=== PATIENT | male | born 1940 | race Caucasian/White ===

== ENCOUNTER → 2023-03-10 10:32 | Outpatient (REF) | payer OTHER, SELFPAY ==
[2023-03-10 11:06] LABS: % Basophils 1.9 % (0-2); % Eosinophils 3.2 % (0-6); % Immature Granulocytes 0.4 % (0-0.5); % Lymphocytes 12.3 % (20.5-51.1); % Monocytes 10.3 % (1.7-9.3); % Neutrophils 71.9 % (42.2-75.2); Absolute Basophils 0.2 10^3/uL (0-0.2); Absolute Eosinophils 0.3 10^3/uL (0-0.7); Absolute Lymphocytes 1.1 10^3/uL (1.2-3.4); Absolute Monocytes 0.9 10^3/uL (0.1-0.6); Absolute Neutrophils 6.4 10^3/uL (1.4-6.5); Hematocrit 36.4 % (39.0-52.0); Hemoglobin 12.4 g/dL (13.0-18.0); Mean Corp Hgb Conc. 34.1 g/dL (33.0-37.0); Mean Corpuscular Hgb 29.3 pg (27.0-31.0); Mean Corpuscular Volume 86.1 fL (80.0-94.0); Mean Platelet Volume 10.6 fL (7.4-10.4); Nucleated Red Blood Cells % 0 % (-); Platelet Count 347 10^3/uL (130-400); Red Blood Cell Count 4.23 10^6/uL (4.70-6.10); Red Cell Dist. Width 15.3 % (11.5-14.5)
[2023-03-10 11:16] LABS: Blood Urea Nitrogen 35 mg/dl (9-20); Calcium 9.2 mg/dl (8.4-10.2); Carbon Dioxide 25 mmol/L (22-30); Chloride 102 mmol/L (98-107); Glucose 130 mg/dl (70-99); Potassium 4.7 mmol/L (3.5-5.1); Sodium 137 mmol/L (135-145); eGFR 50.18
== END ==
LOC: OLABP 10:32
PROVIDERS: ATTENDING PHYSICIAN Family Medicine
DX: I51.81 Takotsubo syndrome (principal); N17.9 Acute kidney failure, unspecified; M62.81 Muscle weakness (generalized); U07.1 COVID-19; G93.40 Encephalopathy, unspecified; B00.9 Herpesviral infection, unspecified; R26.2 Difficulty in walking, not elsewhere classified; E11.9 Type 2 diabetes mellitus without complications; E78.5 Hyperlipidemia, unspecified; I10 Essential (primary) hypertension; M19.90 Unspecified osteoarthritis, unspecified site
CPT/HCPCS: 36415; 80048; 85025

== ENCOUNTER 2023-03-26 09:40 | Day surgery (SDC) | payer OTHER, SELFPAY ==
[2023-03-26] VITALS (14 sets, daily range): BP systolic 135–151; BP diastolic 66–80; BMI 24.5
[2023-03-26] MEDS: NSS 233 ML IV (10:28)
[2023-03-26 10:33] LABS: Glucose - Point of Care 127 mg/dl (70-99)
[2023-03-26] MEDS: NSS 1000 IV (14:04)
--- NOTE | 2023-03-26 15:37 | ITS.CL.CATH ---
Gate Agent - Catheterization
Cardiac Catheterization
Procedure Report:
LEFT HEART CATHETERIZATION
Date of Procedure: March 26, 2023
Referring: Juanita Chatterjee MD
PROCEDURES:
1. Left heart catheterization, coronary angiogram.
2. Right heart catheterization.
Ultrasound-guided access
INDICATION: Mr. Prince Arceo is a 82-year-old gentleman with past medical history of hypertension, hyperlipidemia, type 2 diabetes mellitus, [id number], CKD with recent hospitalization for COVID-pneumonia and toxic metabolic
encephalopathy found to have a new reduction in LV systolic function, LVEF of 25% who now presents for a left and right heart catheterization. Of note, patient has not complained of any active cardiac complaints including no chest discomfort,
shortness of breath or any other heart failure symptoms.
ACCESS:
1. Right radial artery, 6 [place] sheath, under ultrasound guidance.
2. Right brachial vein, 6 [place] sheath, under ultrasound guidance
HEMODYNAMICS : (mmHg)
RA (m) : 6
RV (s/d,m) : 28/4, 7
PA (s/d, m) : 22/9, 14
PCWP (m) : 8
PA saturation: 64% on room air
AO saturation: 100% on room air
SVC saturation: 68.8% on room air
Heart rate: 63bpm
Cardiac Output : 3.93 L/min
Cardiac Index : 2.01 L/min/m-2
Systemic vascular resistance: 1588 dsc^(-5)
Pulmonary vascular resistance: 1.53 shin unit
AO (s/d) : 126/66
LV (s/d) : 124/6
LVEDP : 12
CORONARY FINDINGS
DOMINANCE: Right
LEFT MAIN: The left main artery is a large-caliber vessel which gives rise to the left anterior descending artery and the left circumflex artery. There is minimal luminal irregularities.
LEFT ANTERIOR DESCENDING: The left into descending artery is a medium to large caliber vessel which gives rise to 1 major diagonal branch. There is mild to moderate diffuse atherosclerotic plaque from the proximal to mid LAD with 100% chronic total
occlusion in the mid LAD at the level of the diagonal branch. The diagonal branch, which is a small to medium caliber, has 2 serial lesions up to 70%.
CIRCUMFLEX: The left circumflex artery is a medium caliber vessel which gives rise to multiple medium caliber obtuse marginal branches and a couple small caliber left posterolateral branches. There is mild diffuse atherosclerotic plaque
RIGHT CORONARY ARTERY: The right coronary artery is a large-caliber, dominant vessel which gives rise to the right posterior descending artery and the right posterolateral system. There is 50% mid RCA stenosis with otherwise mild diffuse
atherosclerotic plaque. Right to left collaterals are also noted.
SEDATION: 41 minutes of procedural sedation was utilized. An independent medical lab scientist was present to assist with and help manage the patient's level of consciousness and physiologic status.
RADIATION SUMMARY: Fluoro Time (min): 2.6, Dose (mGy): 244.56, DAP (Gy.cm2) : 21.9
Closure Device:
1. Vascular band over right radial artery, 10 cc of air.
2. Manual pressure was held over the right brachial venous access site with successful hemostasis.
CONCLUSIONS
1. Multivessel coronary artery disease.
2. Right and left-sided filling pressures with low normal cardiac output. Mildly elevated systemic vascular resistance.
RECOMMENDATIONS
1. After reviewing all of the images with interventional partner, Dr. Robin Ram, and CT surgeon, Dr. Félix Lake, as well as a lengthy discussion with patient and his son over treatment options including medications only versus PCI and
medications versus consideration for CABG, in setting of no active cardiac complaints, and LVEF reduction out of proportion to underlying coronary artery disease, we have agreed to pursue optimization of goal-directed medical therapy for likely
mixed cardiomyopathy.
2. Aggressive management of cardiovascular risk factors.
3. Referral for outpatient cardiac rehab and close follow-up with outpatient cardiology with plan to reassess LVEF by repeating echocardiogram at 3 months.
Juanita Chatterjee MD, FACC, [facility]
== END 2023-03-26 16:45 | disposition home or self-care (01) ==
LOC: CATH 09:40
PROVIDERS: ATTENDING PHYSICIAN Internal Medicine Interventional Cardiology; FAMILY PHYSICIAN Physician Assistant Medical
DX: I25.10 Atherosclerotic heart disease of native coronary artery without angina pectoris (principal); I10 Essential (primary) hypertension; E11.9 Type 2 diabetes mellitus without complications; I12.9 Hypertensive chronic kidney disease with stage 1 through stage 4 chronic kidney disease, or unspecified chronic kidney disease; E11.22 Type 2 diabetes mellitus with diabetic chronic kidney disease; N18.32 Chronic kidney disease, stage 3b; Z79.84 Long term (current) use of oral hypoglycemic drugs; Z86.16 Personal history of COVID-19
CPT/HCPCS: 76937; 82962; 93460; 99152; 99153; C1894; Q9967

== ENCOUNTER → 2023-04-21 07:02 | Outpatient (REF) | payer OTHER, SELFPAY | LOC: RAD 07:02 | PROVIDERS: ATTENDING PHYSICIAN Student in an Organized Health Care Education/Training Program; FAMILY PHYSICIAN Physician Assistant Medical | DX: N18.31 Chronic kidney disease, stage 3a (principal) | CPT/HCPCS: 76770 ==

== ENCOUNTER → 2023-04-29 09:37 | Outpatient (REF) | payer OTHER, SELFPAY | LOC: HWRAD 09:37 | PROVIDERS: ATTENDING PHYSICIAN Student in an Organized Health Care Education/Training Program; FAMILY PHYSICIAN Physician Assistant Medical | DX: N18.31 Chronic kidney disease, stage 3a (principal); N28.89 Other specified disorders of kidney and ureter | CPT/HCPCS: 74170; Q9967 ==

== ENCOUNTER 2023-05-08 11:10 | Outpatient (RCR) | payer OTHER, SELFPAY ==
[2023-05-04 10:57] LABS: Glucose - Point of Care 188 mg/dl (70-99)
[2023-05-04 11:37] LABS: Glucose - Point of Care 146 mg/dl (70-99)
[2023-05-06 11:13] LABS: Glucose - Point of Care 236 mg/dl (70-99)
[2023-05-06 11:55] LABS: Glucose - Point of Care 163 mg/dl (70-99)
[2023-05-08 10:58] LABS: Glucose - Point of Care 235 mg/dl (70-99)
[2023-05-08 11:45] LABS: Glucose - Point of Care 126 mg/dl (70-99)
== END 2023-05-08 23:59 | disposition home or self-care (01) ==
LOC: CRHB 11:10
PROVIDERS: ATTENDING PHYSICIAN Internal Medicine Interventional Cardiology
DX: I50.20 Unspecified systolic (congestive) heart failure (principal)
CPT/HCPCS: 82962; G0422; G0423

== ENCOUNTER → 2023-05-27 10:26 | Outpatient (REF) | payer OTHER, SELFPAY | LOC: RCS 10:26 | PROVIDERS: ATTENDING PHYSICIAN Internal Medicine Interventional Cardiology; FAMILY PHYSICIAN Physician Assistant Medical | DX: I70.0 Atherosclerosis of aorta (principal); I42.9 Cardiomyopathy, unspecified | CPT/HCPCS: 93308 ==

== ENCOUNTER 2023-05-29 11:49 | Emergency (ER) | payer OTHER, SELFPAY ==
[2023-05-29] VITALS (9 sets, daily range): BP systolic 128–139; BP diastolic 67–86; BMI 24.9
--- NOTE | 2023-05-29 12:09 | ED.GENMED ---
History of Present Illness
<Fernando Osborn DO - Last Filed: 05/30/23 06:36>
General
Chief Complaint: Heart Rate Problem
Source: patient and records
Exam Limitations: none
Time Seen by Provider: 05/29/23 11:58
Nursing documentation reviewed up to this point in time: agreed with
Travel History
Have you had any contact with someone who has COVID-19?: No
Do you have any symptoms of coronavirus? Fever > 100 degrees, chills, cough, shortness of breath, sore throat, loss of taste or smell, muscle aches, or headache?: No
History of Present Illness
History of Present Illness:
82-year-old male in room 40 who presented to the emergency department after reportedly going into ventricular tachycardia while in cardiac rehab today. Patient did become lightheaded and symptomatic at the time but no chest pain or shortness of
breath. Patient was doing cardiac rehab after his admission in March for COVID-pneumonia and being found to have a EF of 25%. Patient had a echocardiogram on Thursday which showed an EF of 55 to 60%. Looking at the EKG I am not sure that this is
V. tach. He does have an underlying left bundle branch block and is ready to go up to about 150. Patient's QRS did widen but the axis remained the same. Patient is totally asymptomatic at this time. When the patient had a cardiac catheterization in
March the patient was found to have proximal LAD atherosclerotic disease with 100% chronic total occlusion in the mid LAD at the level of the diagonal branch. Right coronary artery is a large caliber dominant vessel and there is a 50% mid RCA
stenosis. At that time is decided to manage medically. Patient has been doing fine. Patient denied any symptoms other than feeling lightheaded today.
Past History
<Fernando Osborn DO - Last Filed: 05/30/23 06:36>
Past History
ED Past Medical History: CAD, HTN, Hypercholesterolemia, NIDDM and Other (oa)
Social History
Tobacco: Non-smoker
Alcohol: None
Drug: None
Personal:
Living: with family
Employment: Retired
Review of Systems
<Fernando Osborn DO - Last Filed: 05/30/23 06:36>
Review of Systems
All Other Systems: ROS reviewed and negative except as documented in HPI and ROS
Constitutional: Reports no symptoms
EENT: Reports no symptoms
Respiratory: Reports no symptoms
Cardiac: Reports other (Lightheaded with generalized weakness); Denies chest pain, diaphoresis, palpitations or syncope
ABD/GI: Reports no symptoms
: Reports no symptoms
Musculoskeletal: Reports no symptoms
Skin: Reports no symptoms
Neurological: Reports no symptoms
Hematologic/Lymphatic: Reports no symptoms
Phy Exam
<Fernando Osborn DO - Last Filed: 05/30/23 06:36>
Physical Exam
Physical Exam:
Physical Exam
General: No apparent distress, alert and appropriate, well nourished, well hydrated
HENT: Normocephalic, supple with no lymphadenopathy, no thyromegaly
Eyes: Clear sclera, conjuctiva without injection
Heart: Regular rhythm and rate. No S3, S4. No murmur. No NVD, bruit
Lungs: No respiratory distress, no stridor, lung sounds clear and equal bilaterally
Abdomen: Soft, nontender, no organomegaly, no CVA tenderness, BS good
Neuro: Alert and oriented x 3, CN II - XII intact, no motor focality, no cerebellar dysfunction
Skin: no rash
Psychiatric: well kept. interactive and cooperative
Extremities: No edema, cyanosis, tenderness, Good and equal peripheral pulses.
Course
<Fernando Osborn DO - Last Filed: 05/30/23 06:36>
Orders/Labs/Results
Orders:
Orders
05/29/23 11:52
Electrocardiogram (*1) Urgent
Reason for Study: Abnormal EKG
EKG- Treatment ONCE
05/29/23 11:59
CMP [Comprehensive Metabolic Panel] Urgent
Complete Blood Count/With Diff Urgent
Magnesium Urgent
Comment: MAG ADDED ON BY FLOOR 4PM 05-29-23
05/29/23 15:57
Add On- LAB Urgent
Tests Added?: magnesium
Abnormal Lab Results
05/29/23
11:59
RBC 4.24 L 10^6/uL
(4.70-6.10)
Hgb 12.8 L g/dL
(13.0-18.0)
Hct 37.4 L %
(39.0-52.0)
Absolute Lymphs (auto) 1.0 L 10^3/uL
(1.2-3.4)
Absolute Monos (auto) 0.9 H 10^3/uL
(0.1-0.6)
Lymphocytes % 12.4 L %
(20.5-51.1)
Monocytes % 11.6 H %
(1.7-9.3)
BUN 31 H mg/dl
(9-20)
Glucose 128 H mg/dl
(70-99)
Total Protein 6.2 L g/dl
(6.3-8.2)
05/29/23 11:59
05/29/23 11:59
Vital Signs
Initial and Last Documented VS:
Initial Vital Signs
Temp Pulse Resp BP Pulse Ox
98.5 F 78 18 130/70 98
05/29/23 11:52 05/29/23 11:52 05/29/23 11:52 05/29/23 11:52 05/29/23 11:52
Last Documented Vital Signs
Temp Pulse Resp BP Pulse Ox
98.5 F 66 17 139/77 96
05/29/23 11:52 05/29/23 17:15 05/29/23 17:15 05/29/23 16:45 05/29/23 17:15
<Salas Elizondo, DO - Last Filed: 05/29/23 17:02>
Orders/Labs/Results
Orders:
Orders
05/29/23 11:52
Electrocardiogram (*1) Urgent
Reason for Study: Abnormal EKG
EKG- Treatment ONCE
05/29/23 11:59
CMP [Comprehensive Metabolic Panel] Urgent
Complete Blood Count/With Diff Urgent
Magnesium Urgent
Comment: MAG ADDED ON BY FLOOR 4PM 05-29-23
05/29/23 15:57
Add On- LAB Urgent
Tests Added?: magnesium
Abnormal Lab Results
05/29/23
11:59
RBC 4.24 L 10^6/uL
(4.70-6.10)
Hgb 12.8 L g/dL
(13.0-18.0)
Hct 37.4 L %
(39.0-52.0)
Absolute Lymphs (auto) 1.0 L 10^3/uL
(1.2-3.4)
Absolute Monos (auto) 0.9 H 10^3/uL
(0.1-0.6)
Lymphocytes % 12.4 L %
(20.5-51.1)
Monocytes % 11.6 H %
(1.7-9.3)
BUN 31 H mg/dl
(9-20)
Glucose 128 H mg/dl
(70-99)
Total Protein 6.2 L g/dl
(6.3-8.2)
05/29/23 11:59
05/29/23 11:59
Vital Signs
Initial and Last Documented VS:
Initial Vital Signs
Temp Pulse Resp BP Pulse Ox
98.5 F 78 18 130/70 98
05/29/23 11:52 05/29/23 11:52 05/29/23 11:52 05/29/23 11:52 05/29/23 11:52
Last Documented Vital Signs
Temp Pulse Resp BP Pulse Ox
98.5 F 66 17 139/77 96
05/29/23 11:52 05/29/23 17:15 05/29/23 17:15 05/29/23 16:45 05/29/23 17:15
<Fernando Osborn DO - Last Filed: 05/30/23 06:36>
*Radiology
Radiology exam reviewed: other (na)
*Pulse Oximetry
Patient hypoxic: no
*EKG
Interpreted by ED Provider?: Yes
EKG Intrepretation Date: 05/29/23
EKG Intrepretation Time: 12:00
Interpretation: abnormal
Comparison EKG: changes noted
Heart Rate: 78
Rate: normal
Rhythm: sinus
[place]: left axis deviation
Interval: normal interval
QRS Pattern: left vent hypertrophy
Ischemia: non-specific ST changes
*Digital Associate Interpretation
Rate: normal
Interpretation: normal
Heart Rate: 80
Rhythm: sinus
*Critical Care Note
Total Time (30-74mins, 75-104mins- exclusive of procedures): Not Applicable
<Salas Elizondo, DO - Last Filed: 05/29/23 17:02>
Update Note
Update Note:
5 PM care of patient was transitioned earlier pending cardiology evaluation. Patient showing evidence of intermittent SVT. Cardiology did evaluate and suggested increasing metoprolol dosing to 25 mg twice a day. They did place a Holter monitor at
bedside and will follow-up. We discussed decreasing his metoprolol if he develops any symptoms of symptomatic bradycardia. This was relayed to patient who verbalized understanding.
ED Attending Note
<Fernando Osborn DO - Last Filed: 05/30/23 06:36>
-
Portions of this chart may have been created with voice recognition software.� Occasional wrong word or��sound alike� substitutions may have occurred due to the inherent limitations of voice recognition software.
Discharge Plan
Departure
Patient Disposition: Home (Routine Discharge)
Date of Disposition: 05/29/23
Time of Disposition: 16:53
Patient with high blood pressure during this ER visit?: Yes
Discharge Problem:
SVT (supraventricular tachycardia)
Instructions: Ambulatory Cardiac Monitoring (DC), Supraventricular tachycardia (SVT)
Prescriptions:
New
metoprolol succinate 25 mg tablet extended release 24 hr
25 mg PO BID Qty: 60 0RF
No Action
finasteride 5 mg Tablet
5 mg PO DAILY
atorvastatin 40 mg Tablet
40 mg PO QPM Qty: 30 0RF
amitriptyline 25 mg Tablet
25 mg PO DAILY Qty: 30 0RF
carbamazepine 100 mg Tablet,Chewable
250 mg PO BID Qty: 60 0RF
Entresto 24-26 mg Tablet
1 tab PO BID Qty: 30 0RF
aspirin [Ecotrin Low Strength] 81 mg Tablet,Delayed Release (Dr/Ec)
81 mg DAILY
bisacodyl [Dulcolax (bisacodyl)] 5 mg Tablet,Delayed Release (Dr/Ec)
5 mg PO TID PRN (Reason: constipation)
metoprolol succinate 25 mg tablet extended release 24 hr
12.5 mg PO BID
spironolactone [Aldactone] 25 mg tablet
25 mg PO DAILY Qty: 90 5RF
dapagliflozin propanediol [Farxiga] 10 mg tablet
10 mg PO DAILY Qty: 90 5RF
Referrals:
Elroy Dias PA-C [Family Provider] -
Juanita Chatterjee MD [Active] - 06/04/23 9:20 am (In the [facility] )
Activity Restrictions/Additional Instructions:
Please return for any worsening symptoms.
You may return at any time if you have further concerns.
Please follow up with your doctor at the first available appointment, preferably this week.
Cardiology will follow-up with your Holter monitor. As discussed, cardiology wants you to start to metoprolol 25 mg twice a day. If you develop any weakness, fatigue or dizziness or heart rate less than 60 beats per minute, please switch this
dosing to 25 mg once a day and let the cardiology office know.
Thank you for choosing [facility].
Interventions
Interventions:
*Risk Screen - Suicide Last Done: 05/29/23 12:29
*General Assessment Last Done: 05/29/23 11:52
*Neglect/Abuse Screening Last Done: 05/29/23 12:29
ED- Fall Risk Assessment Last Done: 05/29/23 12:29
*ED COVID-19 Vaccine History Last Done: 05/29/23 11:52
*Nursing Disposition Last Done: 05/29/23 17:26
ED- Cardiac Assessment Last Done: 05/29/23 12:29
ED- Pulmonary Assessment Last Done: 05/29/23 12:29
Discharge Date and Time
Discharge Date/Time: 05/29/23 17:27
Print Language: BANGLADESHI
[2023-05-29 12:20] LABS: % Basophils 0.8 % (0-2); % Eosinophils 3.5 % (0-6); % Immature Granulocytes 0.5 % (0-0.5); % Lymphocytes 12.4 % (20.5-51.1); % Monocytes 11.6 % (1.7-9.3); % Neutrophils 71.2 % (42.2-75.2); Absolute Basophils 0.1 10^3/uL (0-0.2); Absolute Eosinophils 0.3 10^3/uL (0-0.7); Absolute Monocytes 0.9 10^3/uL (0.1-0.6); Absolute Neutrophils 5.5 10^3/uL (1.4-6.5); Hematocrit 37.4 % (39.0-52.0); Hemoglobin 12.8 g/dL (13.0-18.0); Mean Corp Hgb Conc. 34.2 g/dL (33.0-37.0); Mean Corpuscular Hgb 30.2 pg (27.0-31.0); Mean Corpuscular Volume 88.2 fL (80.0-94.0); Mean Platelet Volume 10.4 fL (7.4-10.4); Nucleated Red Blood Cells % 0 % (-); Platelet Count 306 10^3/uL (130-400); Red Blood Cell Count 4.24 10^6/uL (4.70-6.10); Red Cell Dist. Width 14.1 % (11.5-14.5); White Blood Cell Count 7.7 10^3/uL (4.8-10.8)
[2023-05-29 12:37] LABS: ALT (SGPT) 26 U/L (0-50); AST (SGOT) 26 U/L (17-59); Albumin 4.1 g/dl (3.5-5.0); Alkaline Phosphatase 82 U/L (38-126); Blood Urea Nitrogen 31 mg/dl (9-20); Calcium 9.3 mg/dl (8.4-10.2); Carbon Dioxide 24 mmol/L (22-30); Chloride 105 mmol/L (98-107); Estimated Creatinine Clearance 45 ml/min; Glucose 128 mg/dl (70-99); Potassium 4.7 mmol/L (3.5-5.1); Sodium 136 mmol/L (135-145); Total Bilirubin 0.5 mg/dl (0.2-1.3); Total Protein 6.2 g/dl (6.3-8.2); eGFR 54.85
--- NOTE | 2023-05-29 15:43 | CON.CAR ---
Addendum entered and electronically signed by Jeramie Garcia DO 05/29/23 17:20:
I saw and examined the patient.
The Stock Layer's note was reviewed and I agree with the note.
Comment:
Patient is a pleasant 80-year-old gentleman with past medical history significant hyperlipidemia, diabetes mellitus type 2, osteoarthritis, CKD, recent COVID-19 pneumonia, toxic metabolic encephalopathy in setting of herpes simplex rash with
posttraumatic neuralgia, incidental cardiomyopathy with LVEF 25 to 30% with noted coronary artery disease now improved to 50 to 55% LVEF on echocardiogram 05/27/2023 who presents from cardiac rehab due to tachycardia noted on cardiac rehab telemetry
monitoring with associated dizziness. Patient denies chest pain, shortness of breath, lightheadedness, near-syncope, syncope, PND, orthopnea, edema, or weakness. Patient reports that he is active without limitation. Patient denies any prior
episodes associated with this or prior episodes of palpitations or dizziness. Event spontaneously terminated and patient presented to the emergency department for evaluation from cardiac rehab. While in the emergency department, patient was noted
to have a similar episode only lasting 8 seconds with similar morphology/pattern as the event that occurred to cardiac rehab. In review this appears to be sinus rhythm with a left bundle branch block which is initiated with a PAC which leads to a
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 During the episode that occurred in the emergency department, patient denied experiencing any lightheadedness or dizziness.
GEN: No distress, awake, Ox3
HEENT: supple, anicteric, mmm
LUNGS: CTA, no wheezes/rales
CV: Reg, S1/S2, no murmurs, rubs or gallops
ABD: soft, BS+, NT/ND
EXT: No edema, clubbing, cynanosis
NEURO: Gross non-focal
SKIN: No rash, warm, dry
Assessment and plan as below
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
Will recommend doubling the beta-kimberley from 12.5 mg twice daily to 25 mg twice daily
Will place rhythmstar mobile cardiac racker octave board for close surveillance; discussed with patient that any symptoms associated including lightheadedness, dizziness, near-syncope, syncope, chest pain, shortness breath, palpitations to proceed for
evaluation
Patient has follow-up with his primary roller printer this week (Dr. Juanita Chatterjee)
Stable for discharge from cardiovascular standpoint
Original Note:
Consultation
Consultation Request
Date/Time Consultation Requested: 05/29/2023
Date/Time Consultation Performed: 05/29/2023
Requesting Provider: Dr. Osborn
Performing Provider: Isabella Millard PA-C for Dr. Garcia
Reason for Consultation: Arrhythmia, dizziness
Medical History
-
History of Present Illness:
Patient is a 82-year-old gentleman with past medical history of hyperlipidemia, prediabetes, bilateral knee osteoarthritis, type 2 diabetes mellitus, [id number], CKD with recent hospital admission for COVID-19 pneumonia, toxic metabolic
encephalopathy in the setting of recent herpes simplex rash at the skull with postherpetic neuralgia who was incidentally found to have new LV dysfunction with LVEF of 25 to 30%. He underwent cardiac catheterization 03/26/2023 which demonstrated mid
chronic total occlusion of the LAD with right to left collaterals as well as 2 lesions in small diagonal branch and 50% mid RCA stenosis. Decision was made to treat patient with aggressive medical management with reassessment of LV function in 3
months. He underwent repeat echocardiogram on 05/27/2023 which showed improvement of LV function with EF now 50 to 55%. Patient had been referred to cardiac rehab and was exercising 05/29/2023 when he reported dizziness and developed narrow complex
tachycardia associated with dizziness. He was sent to emergency department for evaluation. EKG in emergency department showed sinus rhythm with left bundle branch block at 78 bpm. Electrolytes were stable.
He feels well at this time without chest pain, SOB, dizziness, palpitations
PMH:
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
Coronary artery disease
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
Type 2 DM - untreated
HLD
Recent C2 herpes zoster
Post herpetic neuralgia
CKD 3b
Osteoarthritis
Past Medical History
Past Medical History: Other (See HPI)
Past Surgical History: Orthopedic (R TKA)
Social History
Tobacco: Non-Smoker
Alcohol: None
Drug: None
Personal:
Living: Alone
Employment: Retired
Allergies / Home Medications
Allergy/AdvReac Type Severity Reaction Status Date / Time
No Known Allergies Allergy Verified 05/29/23 12:02
�Medication �Instructions �Recorded �Confirmed �Type
finasteride 5 mg tablet 5 mg PO DAILY Urinary Issue 02/19/23 03/26/23 History
amitriptyline 25 mg tablet 25 mg PO DAILY #30 tabs 02/27/23 03/26/23 Rx
atorvastatin 40 mg tablet 40 mg PO QPM #30 tabs 02/27/23 03/26/23 Rx
carbamazepine 100 mg chewable 250 mg (2.5 x 100 mg) PO BID #60 02/27/23 03/26/23 Rx
tablet tabs
sacubitril 24 mg-valsartan 26 mg 1 tab PO BID #30 tabs 02/27/23 03/26/23 Rx
tablet (Entresto)
aspirin 81 mg tablet,delayed 81 mg DAILY 03/26/23 03/26/23 History
release (Ecotrin Low Strength)
bisacodyl 5 mg tablet,delayed 5 mg PO TID PRN constipation 03/26/23 03/26/23 History
release (Dulcolax (bisacodyl))
dapagliflozin propanediol 10 mg 10 mg PO DAILY #90 tabs 03/26/23 Rx
tablet (Farxiga)
metoprolol succinate 25 mg 12.5 mg PO BID 03/26/23 03/26/23 History
tablet,extended release 24 hr
spironolactone 25 mg tablet 25 mg PO DAILY #90 tabs 03/26/23 Rx
(Aldactone)
Physical Exam
Vital Signs
Temp Pulse Resp BP Pulse Ox
98.5 F 70 13 128/86 97
05/29/23 11:52 05/29/23 14:45 05/29/23 14:45 05/29/23 14:30 05/29/23 14:45
GEN: No distress, awake, Ox3
HEENT: supple, anicteric, mmm
LUNGS: CTA, no wheezes/rales
CV: Reg, S1/S2, no murmurs, rubs or gallops
ABD: soft, BS+, NT/ND
EXT: No edema, clubbing, cynanosis
NEURO: Gross non-focal
SKIN: No rash, warm, dry
Lab Results
05/29/23 11:59
05/29/23 11:59
Impression / Plan
-
PCP: Elroy Dias PA-C
Scene Shifter: Dr. Chatterjee
Impression:
Present 05/29/2023 with wide-complex tachycardia associated with dizziness
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
Coronary artery disease
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
Type 2 DM - untreated
HLD
Recent C2 herpes zoster
Post herpetic neuralgia
CKD 3b
Osteoarthritis
Cardiac catheterization 03/26/2023: LM: LI. LAD: Chronic total occlusion mid LAD. Small diagonal branch with 2 serial lesions up to 70%. Left circumflex: LI. RCA: 50% mid stenosis with right to left collaterals
Echo 05/27/2023: EF 55 to 60% [place] appears dyssynchronous in some views, mild MR
Echo 02/20/2023: EF 25 to 30% with global hypokinesis. Inferoseptal and basal inferolateral pearson move best. Mild concentric LVH. Mild MR, PAP 30 to 35 mmHg
Plan:
Patient is a 82-year-old gentleman with past medical history of hyperlipidemia, prediabetes, bilateral knee osteoarthritis, type 2 diabetes mellitus, obf-dyxjnyp-wgelrkxrm, CKD with recent hospital admission for COVID-19 pneumonia, toxic metabolic
encephalopathy in the setting of recent herpes simplex rash at the skull with postherpetic neuralgia who was incidentally found to have new LV dysfunction with LVEF of 25 to 30%. He underwent cardiac catheterization 03/26/2023 which demonstrated mid
chronic total occlusion of the LAD with right to left collaterals as well as 2 lesions in small diagonal branch and 50% mid RCA stenosis. Decision was made to treat patient with aggressive medical management with reassessment of LV function in 3
months. He underwent repeat echocardiogram on 05/27/2023 which showed improvement of LV function with EF now 50 to 55%. Patient had been referred to cardiac rehab and was exercising 05/29/2023 when he reported dizziness and developed narrow complex
tachycardia associated with dizziness. He was sent to emergency department for evaluation. EKG in emergency department showed sinus rhythm with left bundle branch block at 78 bpm. Electrolytes were stable.
He feels well at this time without chest pain, SOB, dizziness, palpitations
-Presented 05/29/2023 from cardiac rehab with an episode of wide complex tachycardia associated with dizziness. Lasted several minutes then resolved on his own.
-Blood work in emergency department unremarkable including stable hemoglobin and electrolytes
-Recent echocardiogram 05/27/2023 shows recovered ejection fraction with EF of 55 to 60%
-Will have electrophysiology review rhythm strips suspect SVT
-Consider increasing Toprol to 25 mg daily (He has been taking 12.5 mg daily)
-Review of telemetry shows additional episode of 23 beats of what appears to be SVT. He was asymptomatic. 7 day rhythm star monitor applied in ED. This is a real time monitor.
-Recovered mixed cardiomyopathy continue on Entresto, metoprolol, Farxiga
-Follow up scheduled with Dr Chatterjee next week
-Patient instructed if he should have palpitations with associated dizziness lightheadedness or diaphoresis he should come to the emergency room.
== END 2023-05-29 17:27 | disposition home or self-care (01) ==
LOC: EMR 11:49
PROVIDERS: EMERGENCY PHYSICIAN Emergency Medicine; FAMILY PHYSICIAN Physician Assistant Medical; OTHER PHYSICIAN Internal Medicine Cardiovascular Disease
DX: I47.10 Supraventricular tachycardia, unspecified (principal); R42 Dizziness and giddiness; R53.1 Weakness; I44.7 Left bundle-branch block, unspecified; I25.10 Atherosclerotic heart disease of native coronary artery without angina pectoris; E78.00 Pure hypercholesterolemia, unspecified; E11.22 Type 2 diabetes mellitus with diabetic chronic kidney disease; I12.9 Hypertensive chronic kidney disease with stage 1 through stage 4 chronic kidney disease, or unspecified chronic kidney disease; N18.32 Chronic kidney disease, stage 3b; I25.82 Chronic total occlusion of coronary artery; I42.9 Cardiomyopathy, unspecified; M17.0 Bilateral primary osteoarthritis of knee; J18.9 Pneumonia, unspecified organism; U09.9 Post COVID-19 condition, unspecified; B02.29 Other postherpetic nervous system involvement; Z79.82 Long term (current) use of aspirin; Z96.651 Presence of right artificial knee joint; Z87.891 Personal history of nicotine dependence
CPT/HCPCS: 80053; 83735; 85025; 93005; 99285

== ENCOUNTER 2023-06-08 12:33 | Outpatient (RCR) | payer OTHER, SELFPAY ==
[2023-05-11 11:18] LABS: Glucose - Point of Care 209 mg/dl (70-99)
[2023-05-11 12:10] LABS: Glucose - Point of Care 149 mg/dl (70-99)
[2023-05-13 10:54] LABS: Glucose - Point of Care 116 mg/dl (70-99)
[2023-05-13 11:45] LABS: Glucose - Point of Care 123 mg/dl (70-99)
[2023-05-15 11:08] LABS: Glucose - Point of Care 118 mg/dl (70-99)
[2023-05-15 12:03] LABS: Glucose - Point of Care 106 mg/dl (70-99)
[2023-05-29 11:35] LABS: Glucose - Point of Care 132 mg/dl (70-99)
== END 2023-06-08 23:59 | disposition home or self-care (01) ==
LOC: CRHB 12:33
PROVIDERS: ATTENDING PHYSICIAN Internal Medicine Interventional Cardiology
DX: I50.20 Unspecified systolic (congestive) heart failure (principal)
CPT/HCPCS: 80053; 82962; 83735; 85025; 93005; 99285; G0422; G0423

== ENCOUNTER 2023-07-10 11:38 | Outpatient (RCR) | payer OTHER, SELFPAY | END 2023-07-10 23:59 | disposition home or self-care (01) | LOC: CRHB 11:38 | PROVIDERS: ATTENDING PHYSICIAN Internal Medicine Interventional Cardiology | DX: I50.20 Unspecified systolic (congestive) heart failure (principal); I42.8 Other cardiomyopathies; I25.10 Atherosclerotic heart disease of native coronary artery without angina pectoris | CPT/HCPCS: G0422; G0423 ==

== ENCOUNTER 2023-07-31 11:34 | Outpatient (RCR) | payer OTHER, SELFPAY | END 2023-07-31 23:59 | disposition home or self-care (01) | LOC: CRHB 11:34 | PROVIDERS: ATTENDING PHYSICIAN Internal Medicine Interventional Cardiology | DX: I50.22 Chronic systolic (congestive) heart failure (principal) | CPT/HCPCS: G0422; G0423 ==

== ENCOUNTER 2023-09-07 11:09 | Outpatient (RCR) | payer OTHER, SELFPAY | END 2023-09-07 23:59 | disposition home or self-care (01) | LOC: RPT 11:09 | PROVIDERS: ATTENDING PHYSICIAN Physician Assistant Medical | DX: I95.9 Hypotension, unspecified (principal); R42 Dizziness and giddiness; R26.89 Other abnormalities of gait and mobility | CPT/HCPCS: 97110; 97162 ==

== ENCOUNTER 2023-10-05 15:00 | Outpatient (RCR) | payer OTHER, SELFPAY | END 2023-10-05 15:58 | disposition home or self-care (01) | LOC: RPT 15:00 | PROVIDERS: ATTENDING PHYSICIAN Physician Assistant Medical | DX: I95.1 Orthostatic hypotension (principal); R42 Dizziness and giddiness; R26.89 Other abnormalities of gait and mobility | CPT/HCPCS: 97110; 97112; 97530 ==

== ENCOUNTER 2023-12-08 06:25 | Emergency (ER) | payer OTHER, SELFPAY ==
[2023-12-08 06:28] VITALS: BP 170/94
--- NOTE | 2023-12-08 06:40 | ED.GENMED ---
History of Present Illness
General
Chief Complaint: Abdominal Pain
Time Seen by Provider: 12/08/23 06:36
History of Present Illness
History of Present Illness:
TIME OF INITIAL ENCOUNTER: 6:40 AM
HPI:
The patient presents with lower abdominal discomfort that started last night. He has not had a good bowel movement for the last 3 days. Upon arrival here he did have a bowel movement and feels somewhat improved but reports still being unable to
urinate. He has no back pain. He has no lower extremity weakness.
EXAM:
GENERAL: Well appearing but in mild discomfort
HEENT: Moist oral mucosa
CARDIOVASCULAR: No murmurs, normal heart rate, regular rhythm, No chest wall tenderness
PULMONARY: No respiratory distress, breath sounds are clear and equal
ABDOMEN: Soft with no peritoneal signs, mild lower abdominal tenderness along with suprapubic tenderness, there is a rectal fecal impaction which I did attempt to loosen up however was unable to manually disimpact
NEUROLOGIC: Excellent strength all extremities, no coordination deficits
PSYCHIATRIC: Appropriate mental status, normal insight and judgement
EXTREMITIES: Nontender, no edema, moves all extremities equally
SKIN: No rash, no lesions
NUMBER AND COMPLEXITY OF PROBLEMS ADDRESSED AT THE ENCOUNTER
� Chronic conditions affecting care: Cardiomyopathy, CAD, CKD
� Acute Exacerbation and/or Progression of Chronic Illness: This is an acute problem
� Differential Diagnosis includes: Acute urinary retention, constipation, rectal fecal impaction
AMOUNT AND/OR COMPLEXITY OF DATA TO BE REVIEWED AND ANALYZED
� I performed an independent evaluation of and my interpretation is:
EKG:
CT:
X-rays:
Laboratory Studies:
Other: Bladder scan over 800 mL
� Review of other/old records: I reviewed records, the patient was getting cardiac rehab for heart failure earlier this year
� Clinical information was obtained by an independent historian: None needed
� Prescriptions/Medications Considered but not given:
� Further testing considered but not performed:
RISK OF COMPLICATIONS AND/OR MORBIDITY OR MORTALITY OF PATIENT MANAGEMENT
� Social determinants of health affecting care: Lives at home
� Discussion with other providers:
� Escalation of care including admission/observation vs risk of discharge considered: The patient did have a bowel movement upon arrival and felt somewhat improved however some symptoms including sensation of inability to void
persists. Digital rectal exam obtained and I was able to loosen some of the stool but could not manually disimpact. He attempted to have another bowel movement.
ANY OTHER UPDATES:
7:30 AM: The patient was able to void a little bit�repeat bladder scan still over 700 mL�Grimm catheter placed
Past History
Past History
ED Past Medical History: CAD, HTN, Hypercholesterolemia, NIDDM and Other (oa)
Social History
Tobacco: Non-smoker
Alcohol: None
Drug: None
Personal:
Living: with family
Employment: Retired
Phy Exam
Physical Exam
Physical Exam:
See HPI
Course
Orders/Labs/Results
Orders:
Orders
12/08/23 06:52
Bladder Scan- Treatment ONCE
12/08/23 07:21
Grimm Placement- Treatment ONCE
Reason for insertion: Acute Retention
Vital Signs
Initial and Last Documented VS:
Initial Vital Signs
Temp Pulse Resp BP Pulse Ox
97.7 F 78 20 170/94 98
12/08/23 06:28 12/08/23 06:28 12/08/23 06:28 12/08/23 06:28 12/08/23 06:28
Last Documented Vital Signs
Temp Pulse Resp BP Pulse Ox
97.7 F 78 20 170/94 98
12/08/23 06:28 12/08/23 06:28 12/08/23 06:28 12/08/23 06:28 12/08/23 06:28
*Critical Care Note
Total Time (30-74mins, 75-104mins- exclusive of procedures): Not Applicable
ED Attending Note
-
Portions of this chart may have been created with voice recognition software.� Occasional wrong word or��sound alike� substitutions may have occurred due to the inherent limitations of voice recognition software.
Discharge Plan
Departure
Patient Disposition: Home (Routine Discharge)
Date of Disposition: 12/08/23
Time of Disposition: 07:25
Patient with high blood pressure during this ER visit?: Yes
Discharge Problem:
Acute urinary retention
Instructions: Constipation, Adult (DC), Urinary Retention (DC)
Prescriptions:
No Action
finasteride 5 mg Tablet
5 mg PO DAILY
atorvastatin 40 mg Tablet
40 mg PO QPM Qty: 30 0RF
amitriptyline 25 mg Tablet
25 mg PO DAILY Qty: 30 0RF
carbamazepine 100 mg Tablet,Chewable
250 mg PO BID Qty: 60 0RF
Entresto 24-26 mg Tablet
1 tab PO BID Qty: 30 0RF
aspirin [Ecotrin Low Strength] 81 mg Tablet,Delayed Release (Dr/Ec)
81 mg DAILY
bisacodyl [Dulcolax (bisacodyl)] 5 mg Tablet,Delayed Release (Dr/Ec)
5 mg PO TID PRN (Reason: constipation)
metoprolol succinate 25 mg tablet extended release 24 hr
12.5 mg PO BID
spironolactone [Aldactone] 25 mg tablet
25 mg PO DAILY Qty: 90 5RF
dapagliflozin propanediol [Farxiga] 10 mg tablet
10 mg PO DAILY Qty: 90 5RF
metoprolol succinate 25 mg tablet extended release 24 hr
25 mg PO BID Qty: 60 0RF
Referrals:
Elroy Dias PA-C [Family Provider] -
Luis Sosa Jr., MD [Active] - Follow up in 2-3 days
Activity Restrictions/Additional Instructions:
You had over 800 mL of urine in your bladder. We placed a Grimm catheter. You also had an increased amount of stool on rectal examination which I attempted to manually disimpact. Increase MiraLAX use. Follow-up with Dr. Sosa regarding the
urinary retention.
Interventions
Interventions:
*Risk Screen - Suicide Last Done: 12/08/23 06:28
*General Assessment Last Done: 12/08/23 07:23
*Neglect/Abuse Screening Last Done: 12/08/23 06:28
ED- Fall Risk Assessment Last Done: 12/08/23 07:24
*ED COVID-19 Vaccine History Last Done: 12/08/23 07:23
[facility]-Chaqmx-Aibpgunkby Assessment Last Done: 12/08/23 07:22
ED-Male Genitourinary Assessment Last Done: 12/08/23 07:22
Discharge Date and Time
Print Language: GREEK
[2023-12-08 08:17] VITALS: BP 158/86
== END 2023-12-08 08:20 | disposition home or self-care (01) ==
LOC: EMR 06:25
PROVIDERS: EMERGENCY PHYSICIAN Emergency Medicine; FAMILY PHYSICIAN Physician Assistant Medical
DX: R33.9 Retention of urine, unspecified (principal); I10 Essential (primary) hypertension
CPT/HCPCS: 99283; 51798; 51702

== ENCOUNTER 2024-02-10 12:22 | Emergency (ER) | payer OTHER, SELFPAY ==
[2024-02-10 12:26] VITALS: BP 141/75
--- NOTE | 2024-02-10 15:52 | ED.GENMED ---
History of Present Illness
General
Chief Complaint: Bowel Problem
Source: patient
Exam Limitations: none
Time Seen by Provider: 02/10/24 15:39
History of Present Illness
History of Present Illness:
See MDM
Past History
Past History
ED Past Medical History: CAD, HTN, Hypercholesterolemia, NIDDM and Other (oa)
Social History
Tobacco: Non-smoker
Alcohol: None
Drug: None
Personal:
Living: with family
Employment: Retired
Phy Exam
Physical Exam
Physical Exam:
See MDM
Course
Orders/Labs/Results
Orders:
Orders
02/10/24 12:29
Abdominal Series [CR Obstruct Series W/pa Chest] Urgent
Comment:
Reason For Exam: no bm for 1 week
02/10/24 16:30
Enema- Treatment ONCE
Type: Milk of Molasses
02/10/24 18:54
Magnesium Citrate [Citroma] 300 ml PO ONCE ONE
Vital Signs
Initial and Last Documented VS:
Initial Vital Signs
Temp Pulse Resp BP Pulse Ox
98.8 F 80 18 141/75 98
02/10/24 12:26 02/10/24 12:26 02/10/24 12:26 02/10/24 12:26 02/10/24 12:26
Last Documented Vital Signs
Temp Pulse Resp BP Pulse Ox
98.8 F 72 20 149/71 97
02/10/24 12:26 02/10/24 18:30 02/10/24 18:30 02/10/24 18:30 02/10/24 18:30
MDM/Problems Addressed
Differential Diagnosis Includes:
HPI and MDM Narrative:
83-year-old male presenting for constipation. Patient states he has not had a bowel movement for the past 7 days. He has been taking MiraLAX with no relief. He is not vomiting. He denies any significant abdominal pain.
On exam, he is well-appearing nontoxic. Soft and nontender abdomen. There is no stool in the rectal vault. Will obtain abdominal x-ray
I did suggest having his symptoms reevaluated by his PCP discussed utility of colonoscopy. Although less likely, I discussed the possibility of colon mass as the source of constipation
Physical exam
General: Well appearing and non-toxic
HEENT: protecting airway
Neck: appears supple
CV: No evidence of cyanosis
Resp: No accessory muscle use
Abd: Non-distended. Soft and nontender.
Rectal: No palpable stool
Extremities: No deformities
Neuro: alert
Psych: Normal affect
Skin: Intact
Problems Addressed including Acute and Chronic Conditions affecting care:
1. Constipation
Acuity: acute
Prognosis: stable
Details: Likely slow transit constipation and possibly related to mild dehydration. Since no stool palpated, will obtain abdominal x-ray
Updates
The x-ray was consistent with moderate stool in the colon. He was given a enema. There was minimal stool return. Will give dose of magnesium citrate and discussed return precautions
Differential Diagnosis (but not limited to): Slow transit constipation, dehydration
Testing considered: CT abdomen/pelvis
Drug therapy (if applicable): OTC meds, please see d/c instruction regarding Rx drugs
Amount and/or Complexity of Data Reviewed
Clinical info obtained from: Patient
External data reviewed: N/A
Labs I independently reviewed (but not limited to): N/A
Radiology: X-ray independently reviewed: Abdominal x-ray showing moderate stool in the colon
Pulse Ox: not hypoxic
EKG independently reviewed: N/A
Jewelry Salesperson: N/A
Critical Care: N/A
Risk of Complication:
Social Determinants of health: Good social support
Discussed with other providers: N/A
Escalation of Care includes Admit/Obs: After being observed in the Emergency Department, pt stable for discharge.
Occasional wrong word or 'sound a like' substitutions may have occurred due to the inherent limitations of voice recognition software. Read the chart carefully and recognize, using context, where substitutions have occurred.
*Critical Care Note
Total Time (30-74mins, 75-104mins- exclusive of procedures): Not Applicable
ED Attending Note
-
Portions of this chart may have been created with voice recognition software.� Occasional wrong word or��sound alike� substitutions may have occurred due to the inherent limitations of voice recognition software.
Discharge Plan
Departure
Patient Disposition: Home (Routine Discharge)
Date of Disposition: 02/10/24
Time of Disposition: 18:56
Patient with high blood pressure during this ER visit?: Yes
Discharge Problem:
Acute constipation
Instructions: Constipation, Adult (DC)
Prescriptions:
No Action
finasteride 5 mg Tablet
5 mg PO DAILY
atorvastatin 40 mg Tablet
40 mg PO QPM Qty: 30 0RF
amitriptyline 25 mg Tablet
25 mg PO DAILY Qty: 30 0RF
carbamazepine 100 mg Tablet,Chewable
250 mg PO BID Qty: 60 0RF
Entresto 24-26 mg Tablet
1 tab PO BID Qty: 30 0RF
aspirin [Ecotrin Low Strength] 81 mg Tablet,Delayed Release (Dr/Ec)
81 mg DAILY
bisacodyl [Dulcolax (bisacodyl)] 5 mg Tablet,Delayed Release (Dr/Ec)
5 mg PO TID PRN (Reason: constipation)
metoprolol succinate 25 mg tablet extended release 24 hr
12.5 mg PO BID
spironolactone [Aldactone] 25 mg tablet
25 mg PO DAILY Qty: 90 5RF
dapagliflozin propanediol [Farxiga] 10 mg tablet
10 mg PO DAILY Qty: 90 5RF
metoprolol succinate 25 mg tablet extended release 24 hr
25 mg PO BID Qty: 60 0RF
Referrals:
Elroy Dias PA-C [Family Provider] -
Activity Restrictions/Additional Instructions:
Please return for any worsening symptoms.
You may return at any time if you have further concerns.
Please take magnesium citrate tomorrow morning. Moving forward, please take a daily stool softener such as docusate sodium (Colace). Increase your water intake.
Please follow up with your doctor at the first available appointment, preferably this week.
Thank you for choosing [facility].
Interventions
Interventions:
*Risk Screen - Suicide Last Done: 02/10/24 12:26
*General Assessment Last Done: 02/10/24 12:26
*Neglect/Abuse Screening Last Done: 02/10/24 12:26
*ED COVID-19 Vaccine History Last Done: 02/10/24 12:26
HU-Mmuqwk-Kvzkhbtauw Assessment Last Done: 02/10/24 16:22
Discharge Date and Time
Print Language: TAJIK
[2024-02-10 18:30] VITALS: BP 149/71
[2024-02-10] MEDS: CITROMA 300 ML PO (19:01)
== END 2024-02-10 19:09 | disposition home or self-care (01) ==
LOC: EMR 12:22
PROVIDERS: EMERGENCY PHYSICIAN Student in an Organized Health Care Education/Training Program; FAMILY PHYSICIAN Physician Assistant Medical
DX: K59.09 Other constipation (principal); I25.10 Atherosclerotic heart disease of native coronary artery without angina pectoris; I10 Essential (primary) hypertension; E78.00 Pure hypercholesterolemia, unspecified; E11.9 Type 2 diabetes mellitus without complications; M19.90 Unspecified osteoarthritis, unspecified site
CPT/HCPCS: 99283; 74022

== ENCOUNTER 2024-03-08 06:11 | Day surgery (SDC) | payer OTHER, SELFPAY | END 2024-03-08 08:50 | disposition home or self-care (01) | LOC: GI 06:11 | PROVIDERS: ATTENDING PHYSICIAN Internal Medicine Gastroenterology | DX: K52.9 Noninfective gastroenteritis and colitis, unspecified (principal); K57.30 Diverticulosis of large intestine without perforation or abscess without bleeding; K64.8 Other hemorrhoids; K59.00 Constipation, unspecified; R19.4 Change in bowel habit | CPT/HCPCS: 45380; 88305 ==

== ENCOUNTER → 2024-05-05 09:11 | Outpatient (REF) | payer OTHER, SELFPAY | LOC: RCS 09:11 | PROVIDERS: ATTENDING PHYSICIAN Internal Medicine Interventional Cardiology; FAMILY PHYSICIAN Physician Assistant Medical | DX: I47.10 Supraventricular tachycardia, unspecified (principal); I42.9 Cardiomyopathy, unspecified; I25.10 Atherosclerotic heart disease of native coronary artery without angina pectoris | CPT/HCPCS: 93306 ==

== ENCOUNTER 2024-08-31 13:14 | Outpatient (RCR) | payer OTHER, SELFPAY | END 2024-08-31 23:59 | disposition home or self-care (01) | LOC: RPT 13:14 | PROVIDERS: ATTENDING PHYSICIAN Physician Assistant Medical | DX: R42 Dizziness and giddiness (principal); Z73.6 Limitation of activities due to disability; Z91.81 History of falling | CPT/HCPCS: 97110; 97112; 97162 ==

== ENCOUNTER 2024-09-16 10:43 | Outpatient (RCR) | payer OTHER, SELFPAY | END 2024-09-22 12:39 | disposition home or self-care (01) | LOC: RPT 10:43 | PROVIDERS: ATTENDING PHYSICIAN Physician Assistant Medical | DX: R42 Dizziness and giddiness (principal); Z73.6 Limitation of activities due to disability; Z91.81 History of falling | CPT/HCPCS: 97110; 97112 ==

== ENCOUNTER → 2024-10-05 10:01 | Outpatient (REF) | payer OTHER, SELFPAY | LOC: RCS 10:01 | PROVIDERS: ATTENDING PHYSICIAN Internal Medicine Interventional Cardiology; FAMILY PHYSICIAN Physician Assistant Medical | DX: I25.5 Ischemic cardiomyopathy (principal) | CPT/HCPCS: 93306 ==